=== PATIENT | male | born 1985 | race Caucasian/White ===

== ENCOUNTER 2018-06-17 08:12 | Day surgery (SDC) | payer BC ==
[2018-06-15 15:21] VITALS: BMI 30.7
[~2018-06-17 08:12] MED LIST: LACTATED RINGERS 1,000 ML IV SCH
[2018-06-17] MEDS ORDERED: LIDOCAINE 1% 20 ML VIAL (10MG/ML) FOR IV START INTRADERMA ONE (08:55)
[2018-06-17 08:59] VITALS: RESP 18; TEMP 97.1
[2018-06-17] MEDS ORDERED: MIDAZOLAM 2 MG/2 ML VIAL ONE (09:03)
[2018-06-17] MEDS ORDERED: fentaNYL (PF) 50 MCG/ML 2 ML AMP ONE (09:03)
[2018-06-17] MEDS ORDERED: PROPOFOL 10 MG/ML 20 ML VIAL IV ONE (09:03)
[2018-06-17] MEDS ORDERED: LIDOCAINE 1% INJ 10MG/ML (20 ML MDV) ONE (09:03)
--- NOTE | 2018-06-17 10:22 | P.PCN ---
Date of Procedure: 06/17/18 Description of Procedure: Brief history: Patient is a pleasant scheduled for an elective upper endoscopy as well as colonoscopy as a part of evaluation of month history of diarrhea, hematochezia and abdominal pain. Per the patient is multiple episodes of diarrhea with passage of blood and mucus. The patient reports nighttime symptoms with associated urgency with bowel movement. Some crampy abdominal pain and epigastric abdominal pain. Workup so far including stool studies and abdominal x-ray have been negative. ESR was slightly elevated at 60. No weight loss, fevers chills, or nausea. Procedure performed: Esophagogastroduodenoscopy with biopsy Colonoscopy with biopsy to 25 cm from the anal verge due to a, pulse completely obstructing mass Estimated blood loss: Minimal. Preoperative diagnosis: Hematochezia, epigastric abdominal pain, change in bowel habits, family history of colonoscopy in the patient's father and paternal grandfather Anesthesia: MAC Procedure: After informed consent was obtained from the patient was brought into the endoscopy unit and IV sedation was administered by anesthesia under continuous monitoring. Initially upper endoscopy was done. The Olympus GF 190 video endoscope was inserted into the mouth and esophagus intubated without any difficulty and was gradually advanced into the stomach and duodenum and carefully examined. The bulb and second part of the duodenum appeared normal with biopsies taken to rule out celiac sprue. The scope was then withdrawn into the stomach adequately insufflated with air and upon careful examination the antrum and body, cardia and fundus appeared grossly normal, with mild scattered erythema in the antrum and body suggestive of gastritis which was biopsied. The scope was then withdrawn into the esophagus. The GE junction was located at 41 cm to the incisors. It appeared regular with no erythema erosions or ulcerations. Rest of the esophagus appeared normal. Patient tolerated the procedure well. At this time the patient continued to remain sedation. Initial digital rectal examination was normal. Olympus CF 190 video colonoscope was then inserted into the rectum and to 25 cm from the anal verge where a large partially circumferential and nearly completely obstructing colonic mass was noted. Multiple biopsies were taken from different locations of the mass. Attempts prior to biopsy were made to get past the mass with the colonoscope for inspection of the more proximal colon, however the mass was not able to be traversed and the cecum was not intubated. Injection of ink on the wall of the colon adjacent to the most distal portion of the mass was performed. The prep was excellent. Retroflexion was performed in the rectum and no lesions were noted. Patient tolerated the procedure well. Impression: 1. Nearly obstructing colonic mass 25 cm from the anal verge which was biopsied and tattooed. 2. Gastritis of the antrum and body, biopsied. Duodenal biopsies to rule out sprue. Recommendations: Findings of this examination were discussed with the patient as well as his . Will await pathology and depending on findings patient will be called with scheduling for either a surgical consultation for oncology consultation.
[2018-06-17 11:03] VITALS: BP 146/85; PULSE 61
== END 2018-06-17 11:16 | disposition home or self-care (01) ==
LOC: ORWHC2ENDO 08:12
PROVIDERS: ATTEND Internal Medicine
DX: C19 Malignant neoplasm of rectosigmoid junction (principal); K29.70 Gastritis, unspecified, without bleeding; K21.9 Gastro-esophageal reflux disease without esophagitis; Z79.899 Other long term (current) drug therapy; Z80.0 Family history of malignant neoplasm of digestive organs; Z79.1 Long term (current) use of non-steroidal anti-inflammatories (NSAID)
CPT/HCPCS: 88305; 45380; 43239; 45381; J2250; J2001; J3010; J2704; 44404

== ENCOUNTER → 2023-06-23 | Outpatient (CLI) | payer BC ==
--- NOTE | 2023-06-23 22:30 | MR ---
MRI CERVICAL SPINE: CLINICAL HISTORY: Neck pain that is worse when turns head, Hx of colon cancer 2018, TECHNIQUE: Multiplanar, multisequence imaging of the cervical spine is performed without IV contrast. COMPARISON: None. FINDINGS: Sagittal images of the cervical spine show the craniocervical junction to appear within nor mal limits. The cervical and upper thoracic spinal cord is normal in course, caliber, and signal. V ertebral alignment is anatomic. The vertebral body and intravertebral disk heights are normal. The bone marrow signal intensity is within normal limits. Axial images show tiny left paracentral disc protrusion at C3-C4 level minimally effacing the anterio r thecal sac otherwise axial images are grossly unremarkable. IMPRESSION: Tiny left paracentral disc protrusion at C3-C4 level.
== END | disposition home or self-care (01) ==
LOC: RADMRIMAIN 21:15
PROVIDERS: ATTEND Family Medicine
DX: M50.11 Cervical disc disorder with radiculopathy, high cervical region (principal); Z85.038 Personal history of other malignant neoplasm of large intestine
CPT/HCPCS: 72141